=== PATIENT | male | born 2005 | race Caucasian/White ===

== ENCOUNTER 2023-10-03 21:17 | Emergency (ER) | payer MEDICAID, OTHER ==
[2023-10-03] MEDS: Ibuprofen 400 MG Tab PO ONE (21:42)
[2023-10-03 22:40] VITALS: BP 108/59; PULSE 55
== END 2023-10-03 22:40 | disposition home or self-care (01) ==
LOC: MW.ED 21:17
DX: M25.532 Pain in left wrist (principal)
CPT/HCPCS: 73110; 99284; A9270; 99283